=== PATIENT | female | born 1940 | race Two or more races ===

== ENCOUNTER → 2021-11-07 | Outpatient (REF) | payer MEDICARE, OTHER | LOC: M SFHCDERM 14:04 | PROVIDERS: ATTEND Nurse Practitioner Family | DX: C44.219 Basal cell carcinoma of skin of left ear and external auricular canal (principal) ==

== ENCOUNTER → 2023-12-14 | Outpatient (REF) | payer MEDICARE, OTHER | LOC: M SFHCDERM 17:20 | PROVIDERS: ATTEND Dermatology | DX: Z51.89 Encounter for other specified aftercare (principal) ==